=== PATIENT | male | born 1965 | race Caucasian/White ===

== ENCOUNTER 2022-11-06 12:13 | Emergency (ER) | payer OTHER ==
--- NOTE | 2022-11-06 13:11 | ER ---
Nurse's Notes [facility] Name: Tay Webster Age: 57 yrs Sex: Male : 1965 Arrival Date: 11/06/2022 Time: 12:19 Bed Treatment Private MD: Diagnosis: Pain in right shoulder;Unspecified symptoms and signs involving the musculoskeletal system Presentation: 11/06 12:25 Chief complaint: Patient states: upper back pain since yesterday, denies known injury. aa5 Coronavirus screen: At this time, the client does not indicate any symptoms associated with coronavirus-19. Ebola Screen: Patient denies travel to an Ebola-affected area in the 21 days before illness onset. Initial Sepsis Screen: Does the patient meet any 2 criteria? HR > 90 bpm. Does the patient have a suspected source of infection? No. Patient's initial sepsis screen is negative. Risk Assessment: Do you want to hurt yourself or someone else? Patient reports no desire to harm self or others. Onset of symptoms was October 2022. 12:25 Method Of Arrival: Ambulatory aa5 12:25 Acuity: JESSICA 4 aa5 Historical: - Allergies: 12:26 No Known Allergies; aa5 - PMHx: 12:26 Hypothyroidism; aa5 - PSHx: 12:26 hernia; aa5 - Immunization history:: Adult Immunizations unknown. - Social history:: Smoking status: Patient reports the use of cigarette tobacco products, smokes one pack cigarettes per day. Screenin:56 [facility] ED Fall Risk Assessment (Adult) History of falling in the last 3 months, mb9 including since admission No falls in past 3 months (0 pts) Confusion or Disorientation No (0 pts) Intoxicated or Sedated No (0 pts) Impaired Gait No (0 pts) Mobility Assist Device Used No (0 pt) Altered Elimination No (0 pt) Score/Fall Risk Level 0 - 2 = Low Risk Oriented to surroundings, Maintained a safe environment, Educated pt \\T\\ family on fall prevention, incl call for assistance when getting out of bed. Abuse screen: Denies threats or abuse. Nutritional screening: No deficits noted. Tuberculosis screening: No symptoms or risk factors identified. Assessment: 12:54 Reassessment: pt states "I got off work yesterday and my right upper back and shoulder mb9 hurts. 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 General: Appears comfortable, Behavior is calm, cooperative. Pain: Complains of pain in right shoulder Pain radiates to right back Pain currently is 4 out of 10 on a pain scale. Quality of pain is described as throbbing, Pain began 1 day ago. Neuro: Level of Consciousness is awake, alert, obeys commands, Oriented to person, place, time, situation, Appropriate for age. Cardiovascular: Capillary refill < 3 seconds is brisk Patient's skin is warm and dry. Respiratory: Airway is patent Respiratory effort is even, unlabored, Respiratory pattern is regular, symmetrical. Derm: Skin is pink, warm \\T\\ dry. Musculoskeletal: Range of motion: limited in right shoulder. Vital Signs: 12:25 BP 134 / 73; Pulse 95; Resp 18 S; Temp 97.8(TE); Pulse Ox 96% on R/A; Weight 79.38 kg aa5 (R); Height 5 ft. 11 in. (180.34 cm) (R); 12:25 Body Mass Index 24.41 (79.38 kg, 180.34 cm) aa5 ED Course: 12:19 Patient arrived in ED. as 12:25 Arm band placed on. aa5 12:26 Triage completed. aa5 12:29 Shaji Luciano MD is Attending Physician. kdr 12:37 Cinthia Gray, BELLO is Primary Nurse. mb9 12:57 Bed in low position. Call light in reach. Side rails up X 1. Client placed on mb9 continuous cardiac and pulse oximetry monitoring. NIBP monitoring applied. 13:12 No provider procedures requiring assistance completed. Patient did not have IV access mb9 during this emergency room visit. Administered Medications: No medications were administered Medication: 13:12 VIS not applicable for this client. mb9 Outcome: 13:10 Discharge ordered by . kdr 13:18 Discharged to home ambulatory. mb9 13:18 Condition: stable 13:18 Discharge instructions given to patient, Instructed on discharge instructions, follow up and referral plans. Demonstrated understanding of instructions, follow-up care, medications, Prescriptions given X 2. 13:18 Patient left the ED. mb9 Signatures: Shaji Luciano MD MD kdr Martinez, Amelia as Calderon, Audri RN RN aa5 Cinthia Gray, BELLO RN mb9 Corrections: (The following items were deleted from the chart) 12:27 12:25 Initial Sepsis Screen: Does the patient meet any 2 criteria? No. Patient's aa5 initial sepsis screen is negative. Does the patient have a suspected source of infection? No. Patient's initial sepsis screen is negative. aa5
--- NOTE | 2022-11-06 13:11 | EDPHYS ---
Physician Documentation [facility] Name: Tay Webster Age: 57 yrs Sex: Male : 1965 Arrival Date: 11/06/2022 Time: 12:19 Bed Treatment Private MD: ED Physician Shaji Luciano HPI: 11/06 13:39 This 57 yrs old Male presents to ER via Ambulatory with complaints of Back Pain. kdr 13:39 Patient presents with upper back and right shoulder pain that started yesterday. He kdr denies any known injury. 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 He otherwise has no complaint of focal concern.. Onset: The symptoms/episode began/occurred last night. Severity of symptoms: At their worst the symptoms were mild in the emergency department the symptoms are unchanged. The patient has not experienced similar symptoms in the past. The patient has not recently seen a physician. Historical: - Allergies: 12:26 No Known Allergies; aa5 - PMHx: 12:26 Hypothyroidism; aa5 - PSHx: 12:26 hernia; aa5 - Immunization history:: Adult Immunizations unknown. - Social history:: Smoking status: Patient reports the use of cigarette tobacco products, smokes one pack cigarettes per day. ROS: 13:39 Constitutional: Negative for fever, chills, and weight loss, Eyes: Negative for injury, kdr pain, redness, and discharge, Neck: Negative for injury, pain, and swelling, Cardiovascular: Negative for chest pain, palpitations, and edema, Respiratory: Negative for shortness of breath, cough, wheezing, and pleuritic chest pain, Abdomen/GI: Negative for abdominal pain, nausea, vomiting, diarrhea, and constipation, Back: Negative for injury and pain, : Negative for injury, bleeding, discharge, and swelling, Skin: Negative for injury, rash, and discoloration, Neuro: Negative for headache, weakness, numbness, tingling, and seizure activity. Psych: Negative for depression, anxiety, suicide ideation, homicidal ideation, and hallucinations, Allergy/Immunology: Negative for hives, rash, and allergies, Endocrine: Negative for neck swelling, polydipsia, polyuria, polyphagia, and marked weight changes, Hematologic/Lymphatic: Negative for swollen nodes, abnormal bleeding, and unusual bruising. 13:39 MS/extremity: Positive for decreased range of motion, pain, tenderness, of the right subscapular area. Exam: 13:39 Constitutional: This is a well developed, well nourished patient who is awake, alert, kdr and in no acute distress. Head/Face: Normocephalic, atraumatic. Eyes: Pupils equal round and reactive to light, extra-ocular motions intact. Lids and lashes normal. Conjunctiva and sclera are non-icteric and not injected. Cornea within normal limits. Periorbital areas with no swelling, redness, or edema. Neck: Trachea midline, no thyromegaly or masses palpated, and no cervical lymphadenopathy. Supple, full range of motion without nuchal rigidity, or vertebral point tenderness. No Meningismus. 13:39 Musculoskeletal/extremity: ROM: intact in all extremities, limited active range of motion due to pain, limited passive range of motion due to pain, in the right arm. Vital Signs: 12:25 BP 134 / 73; Pulse 95; Resp 18 S; Temp 97.8(TE); Pulse Ox 96% on R/A; Weight 79.38 kg aa5 (R); Height 5 ft. 11 in. (180.34 cm) (R); 12:25 Body Mass Index 24.41 (79.38 kg, 180.34 cm) aa5 MDM: 13:10 Patient medically screened. kdr 13:39 Data reviewed: vital signs, nurses notes. I considered the following discharge kdr prescriptions or medication management in the emergency department Medications were administered in the Emergency Department. See MAR. Administered Medications: No medications were administered Disposition Summary: 11/06/22 13:10 Discharge Ordered Location: Home kdr Problem: new kdr Symptoms: are unchanged kdr Condition: Stable kdr Diagnosis - Pain in right shoulder kdr - Unspecified symptoms and signs involving the musculoskeletal system kdr Followup: kdr - With: Private Physician - When: 2 - 3 days - Reason: If symptoms return, Further diagnostic work-up, Recheck today's complaints, Continuance of care, Re-evaluation by your physician Discharge Instructions: - Discharge Summary Sheet kdr - Joint Pain kdr - Musculoskeletal Pain kdr - Shoulder Pain kdr Forms: - Medication Reconciliation Form kdr - Thank You Letter kdr - Work release form mb9 Prescriptions: - Ibuprofen 800 mg Oral Tablet - take 1 tablet by ORAL route every 8 hours As needed take with food; 30 tablet; kdr Refills: 0, Product Selection Permitted - Cyclobenzaprine 10 mg Oral Tablet - take 1 tablet by ORAL route every 8 hours As needed; 30 tablet; Refills: 0, kdr Product Selection Permitted Signatures: Shaji Luciano MD MD kdr Meghna Turner RN RN aa5
[2022-11-06 13:24] VITALS: BP 134/73; TEMP 97.8; O2SAT 96
== END 2022-11-06 13:18 | disposition home or self-care (01) ==
LOC: ER 12:13
DX: M25.511 Pain in right shoulder (principal); R29.91 Unspecified symptoms and signs involving the musculoskeletal system; F17.210 Nicotine dependence, cigarettes, uncomplicated
CPT/HCPCS: 99282